=== PATIENT | female | born 1990 | race Caucasian/White ===

== ENCOUNTER 2017-11-11 12:51 | Emergency (ER) | payer MEDICAID ==
[~2017-11-11] VITALS: Ht 162.6 cm; Wt 68.4 kg
[2017-11-11 12:57] VITALS: BP 117/62; PULSE 103; RESP 16; TEMP 98.3; O2SAT 98
--- NOTE | 2017-11-11 13:24 | PD ---
HPI Chief Complaint: Related Problem Time Seen by Provider: 13:17 Travel History International Travel<30 days: No Contact w/Intl Traveler<30days: No Traveled to known affect area: No History of Present Illness HPI This 27-year-old female is complaining of lower abdominal pain. The pain started around 11:00 last night. It was quite bad at 2 AM she still having some discomfort now but is not as bad as it was earlier. She the pain was in the midline. She is currently . She has 2 previous pregnancies with one live and one miscarriage 2 months of gestation. [facility] Past Medical History Diminished Hearing: No ?: LMP: 07/09/17?? Social History Alcohol Use: No Tobacco Use: No Substance Use: No Allergies-Medications (Allergen,Severity, Reaction): Coded Allergies: No Known Allergies (Unverified Adverse Reaction, Unknown, 11/11/17) Reported Meds & Prescriptions Reported Meds & Active Scripts Active No Active Prescriptions or Reported Medications Review of Systems General / Constitutional: No: Fever, Chills Eyes: No: Diploplia HENT: No: Headaches Cardiovascular: No: Chest Pain or Discomfort Respiratory: No: Shortness of Breath Gastrointestinal: No: Nausea, Vomiting Genitourinary: Positive: Pelvic Pain Musculoskeletal: No: Myalgias, Arthralgias Skin: No Rash, No Itching Endocrine: No: Cold Intolerance Hematologic/Lymphatic: No: Easy Bruising Physical Exam Narrative GENERAL: Well-developed female SKIN: Focused skin assessment warm/dry. HEAD: Atraumatic. Normocephalic. EYES: Pupils equal and round. No scleral icterus. No injection or drainage. ENT: No nasal bleeding or discharge. Mucous membranes pink and moist. NECK: Trachea midline. No JVD. CARDIOVASCULAR: Regular rate and rhythm. No murmur appreciated. RESPIRATORY: No accessory muscle use. Clear to auscultation. Breath sounds equal bilaterally. GASTROINTESTINAL: Abdomen soft, non-tender, nondistended. Hepatic and splenic margins not palpable. GLASS TECHNOLOGIST: Cervical os is closed. There is some slight white discharge. There is mild discomfort with movement of the cervix. Uterus is about 16 weeks size MUSCULOSKELETAL: No obvious deformities. No clubbing. No cyanosis. No edema. NEUROLOGICAL: Awake and alert. No obvious cranial nerve deficits. Motor grossly within normal limits. Normal speech. PSYCHIATRIC: Appropriate mood and affect; insight and judgment normal. Data Data Last Documented VS Vital Signs Date Time Temp Pulse Resp B/P (MAP) Pulse Ox O2 Delivery O2 Flow Rate FiO2 11/11/17 12:57 98.3 103 16 117/62 (80) 98 Orders Orders Urinalysis - C+S If Indicated (11/11/17 13:26) Gc And Chlamydia Pcr (11/11/17 13:43) Wet Prep Profile (11/11/17 13:43) Urine Culture (11/11/17 13:30) Labs Laboratory Tests Test 11/11/17 13:30 11/11/17 13:45 Urine Collection Type CLEAN CATCH Urine Color YELLOW Urine Turbidity CLEAR Urine pH 7.5 Urine Specific [place] 1.018 Urine Protein NEG mg/dL Urine Glucose (UA) NEG mg/dL Urine Ketones TRACE mg/dL Urine Occult Blood TRACE Urine Nitrite NEG Urine Bilirubin NEG Urine Leukocyte Esterase NEG Urine WBC 0-2 /hpf Urine Squamous Epithelial Cells 0-5 /hpf Urine Bacteria MANY /hpf Microscopic Urinalysis Comment CULTURE INDICATED Clue Cells (Wet Prep) PRESENT Vaginal Trichomonas (Wet Prep) NONE SEEN Vaginal Yeast (Wet Prep) NONE SEEN MDM Medical Decision Making Medical Screen Exam Complete: Yes Emergency Medical Condition: Yes Medical Record Reviewed: Yes Differential Diagnosis Differential includes cervicitis, threatened ab, uti Narrative Course Wet prep is positive for clue cells indicating bacterial vaginosis. She'll be treated with clindamycin 300 twice a day Diagnosis Primary Impression: Bacterial vaginosis Scripts Clindamycin (Clindamycin) 300 Mg Cap 300 MG PO BID for Infection for 7 Days, #14 CAP 0 Refills Prov: Nathanael De La O MD 11/11/17 Disposition: 01 DISCHARGE HOME Condition: Stable Nathanael De La O MD Nov 11, 2017 13:24
[2017-11-11 13:38] LABS: BLOOD, URINE TRACE (NEG); GLUCOSE,URINE NEG (NEG); KETONE, URINE TRACE mg/dL (NEG); NITRITE,URINE NEG (NEG); PH, URINE 7.5 (5.0-8.5)
[2017-11-11 13:41] LABS: METHOD OF COLLECTION CLEAN CATCH; URINE COLOR YELLOW (YELLW/STRAW)
[2017-11-11 13:43] LABS: BACTERIA, URINE MANY /hpf; SQUAMOUS EPITHELIAL CELL URINE 0-5 /hpf (0-5)
[2017-11-11 13:44] LABS: COMMENT (UR) CULTURE INDICATED; CULTURE IF INDICATED CULTURE INDICATED; WBC, URINE 0-2 /hpf (0-5)
[2017-11-11] MEDS ORDERED: CLIN300C5 PO (14:24)
[2017-11-11 14:29] VITALS: BP 116/67
[2017-11-11 20:56] LABS: CHLAMYDIA PCR NOT DETECTED (NOT DETECT); NEISSERIA PCR NOT DETECTED (NOT DETECT)
== END 2017-11-11 15:27 | disposition home or self-care (01) ==
LOC: PHED 12:51
DX: O23.599 Infection of other part of genital tract in pregnancy, unspecified trimester (principal); B96.89 Other specified bacterial agents as the cause of diseases classified elsewhere; N76.0 Acute vaginitis; Z3A.00 Weeks of gestation of pregnancy not specified
CPT/HCPCS: 81001; 87077; 87086; 87186; 87210; 87491; 87591; 99284

== ENCOUNTER 2017-11-24 13:53 | Emergency (ER) | payer MEDICAID ==
[~2017-11-24 13:53] MED LIST: CLIN300C5 PO
[2017-11-24 14:30] VITALS: RESP 16; TEMP 98.1
[2017-11-24 14:31] VITALS: BP 121/72; PULSE 98
--- NOTE | 2017-11-24 15:25 | PD ---
HPI Chief Complaint abdominal pain Date Seen: Nov 24, 2017 Time Seen: 15:13 Travel History International Travel<30 Days: No Contact w/Intl Traveler<30Days: No History of Present Illness HPI Patient is a 27 year old at approximately 16 weeks gestation who presents for lower abdominal pain. LUISITO unknown per patient but she had US last week at [facility]. She has seen Jennifer Padilla once this . Abdominal pain onset was yesterday evening, sharp in intensity, self-resolved. Recurred this morning and she decided to get checked out. Severity 8/10. No radiation to the back. No nausea or vomiting, no constipation or diarrhea. No fevers. She denies leakage of fluid, vaginal bleeding, and contractions. She feels baby moving regularly. She denies CHAVIS/sick contacts/SOB/calf pain/dizziness/seeing spots. History Past Medical History Medical History: Denies Significant Hx Past Surgical History Surgical History: No Previous Surgery Family History Family History: Negative Social History Alcohol Use: No Tobacco Use: No Substance Abuse: No Allergies-Medications (Allergen,Severity, Reaction): Coded Allergies: No Known Allergies (Unverified Allergy, Unknown, 11/24/17) Home Meds Active Scripts Clindamycin (Clindamycin) 300 Mg Cap, 300 MG PO BID for Infection for 7 Days, # 14 CAP 0 Refills Prov:Nathanael De La O MD 11/11/17 Review of Systems Except as stated in HPI: all other systems reviewed are Neg Physical Exam Vital Signs Date Time Temp Pulse Resp B/P (MAP) Pulse Ox O2 Delivery O2 Flow Rate FiO2 11/24/17 14:31 98 121/72 (88) 11/24/17 14:30 98.1 16 Narrative GENERAL: Well-nourished, well-developed female in no apparent distress. SKIN: Warm and dry. No rashes or ecchymoses. HEAD: Normocephalic and atraumatic. EYES: No scleral icterus. No injection or drainage. ENT: No nasal drainage noted. Mucous membranes pink. Airway patent. NECK: Supple, trachea midline. No JVD. CARDIOVASCULAR: Regular rate and rhythm without murmurs, gallops, or rubs. RESPIRATORY: Breath sounds equal bilaterally. No accessory muscle use. ABDOMEN/GI: Abdomen soft, non-tender, bowel sounds present, no rebound, no guarding. Uterus palpated under umbilicus, not firm, not tender. Tender to palpation over round ligaments. GENITOURINARY: External Genitalia: intact and normal in appearance Cervix: closed, thick, high Membranes: intact Uterine Contractions: not evident FHR: 150s EXTREMITIES: No cyanosis or edema. BACK: Nontender without obvious deformity. No CVA tenderness. NEUROLOGICAL: Awake and alert. Motor and sensory grossly within normal limits. Five out of 5 muscle strength in all muscle groups. Normal speech. Data Data Vital Signs Reviewed: Yes (VS wnl) Orders Orders Ob Poc Ultrasound (11/24/17 ) Vital Signs (Adult) .ON ADMISSION (11/24/17 14:26) ^ Labor Status (11/24/17 14:26) Heart (11/24/17 14:26) MDM Medical Record Reviewed: Yes Narrative Course / MDM 27 year old at approximately 16 weeks gestation who presents for lower abdominal pain. LUISITO unknown per patient but she had US last week at [facility]. She has seen Jennifer Padilla once this . Abdominal Pain: Ddx includes round ligament pain, muscle strain, UTI, Urine dipstick negative Give 50mcg fentanyl IM x 1 for pain, counseled on no driving or heavy lifting after Counseled on Tylenol PRN with max daily dose 3 grams Intrauterine : FHR 150s POC ultrasound performed by Dr. Meléndez showing 16 and 2/7 week gestation, LUISITO 05/09, EFW based on AC/BPD/FL/HC of 22 grams. Anterior placenta, normal fluid. Heart beat present on US. Routine care recommended, given information for [facility] to establish care as requested by patient. SDW Dr. Meléndez Plan Discharge home once pain controlled F/U with OB provider within one week Diagnosis Diagnosis: Primary Impression: First trimester Additional Impression: Abdominal pain during in first trimester Disposition: 01 DISCHARGE HOME Condition: Stable Patient Instructions: Abdominal Pain in (ED), General Instructions, Narcotic given in the ED Departure Forms: Tests/Procedures, Work Release Enter return to work date: Nov 27, 2017 Special Instructions: No heavy lifting Bed rest 24-48 hr Noni Zaavleta MD R2 Nov 24, 2017 15:25
== END 2017-11-24 16:06 | disposition home or self-care (01) ==
LOC: HOBED 13:53
DX: O26.892 Other specified pregnancy related conditions, second trimester (principal); R10.2 Pelvic and perineal pain; Z3A.16 16 weeks gestation of pregnancy
CPT/HCPCS: 96372; 99285; J3010

== ENCOUNTER 2017-12-28 04:13 | Emergency (ER) | payer MEDICAID ==
--- NOTE | 2017-12-28 05:39 | PD ---
HPI Chief Complaint Vaginal bleeding and cramping Date Seen: Dec 28, 2017 Time Seen: 05:30 Travel History International Travel<30 Days: No Contact w/Intl Traveler<30Days: No Known Affected Area: No History of Present Illness HPI 27-year-old 21 weeks induced Jennifer Padilla and presents complaining of having some vaginal bleeding and 3:00 this morning also noted some lower abdominal pain just above the symphysis at the same time she noticed the bleeding. States bleeding was less than a period, she denies leakage of fluid Weeks Gestation: 21 Para: 1 : 3 Miscarriage: 1 History Obstetric History Obstetric History One vaginal delivery 1 early loss Social History Alcohol Use: No Tobacco Use: No Substance Abuse: No Allergies-Medications (Allergen,Severity, Reaction): Coded Allergies: No Known Allergies (Unverified Allergy, Unknown, 11/24/17) Home Meds Active Scripts Clindamycin (Clindamycin) 300 Mg Cap, 300 MG PO BID for Infection for 7 Days, # 14 CAP 0 Refills Prov:Nathanael De La O MD 11/11/17 Review of Systems General / Constitutional: No: Fever, Weight Gain, Chills, Other Eyes: No: Diploplia, Blurred Vision, Visual changes, Pain, Photophobia HENT: No: Headaches, Vertigo, Lightheadedness Cardiovascular: No: Irregular Rhythm, Chest Pain or Discomfort, Palpitations, Tachycardia, Syncope, Varicosities, Edema, Cyanosis Respiratory: No: Cough, Short of Breath, Other Gastrointestinal: Abdominal Pain, No: Nausea, Vomiting, Diarrhea Genitourinary: Vaginal Bleeding, No: Decreased Urinary Output, Oliguria Musculoskeletal: No: Limited ROM, Weakness, Cramping, Edema, Pain Skin: No Rash, No Itching, No Dryness, No Lumps, No Change in Pigmentation, No Change in Nails, No Alopecia, No Lesions Neurologic: No: Weakness, Dizziness, Syncope, Focal Abnormalities, Coordination Problem, Headache, Slurred Speech, Seizures Psychiatric: No: Depression, Suicidal Ideations, Homicidal Ideation Endocrine: No: Heat Intolerance, Cold Intolerance, Polydipsia, Polyuria, Other Physical Exam Narrative GENERAL: Well-nourished, well-developed patient. SKIN: Warm and dry. HEAD: Normocephalic and atraumatic. EYES: No scleral icterus. No injection or drainage. ENT: No nasal drainage noted. Mucous membranes pink. Airway patent. NECK: Supple, trachea midline. No JVD. CARDIOVASCULAR: Regular rate and rhythm without murmurs, gallops, or rubs. RESPIRATORY: Breath sounds equal bilaterally. No accessory muscle use. BREASTS: Bilateral exam showed no masses , no retractions, no nipple discharge. ABDOMEN/GI: Abdomen soft, non-tender, bowel sounds present, no rebound, no guarding Gravid to [-21] weeks size Fundal Height: [at umbilicus-] GENITOURINARY: External Genitalia: intact and normal in appearance Speculum exam done--no blood seen in the vagina cervix appears normal Cervix: [Posterior-] Dilatation: [Closed-] Effacement: [-Thick] Station: [-3] Presentation: [vtx-] Membranes: [intact ] Uterine Contractions: [none-] FHT's: 130s EXTREMITIES: No cyanosis or edema. BACK: Nontender without obvious deformity. No CVA tenderness. NEUROLOGICAL: Awake and alert. Motor and sensory grossly within normal limits. Five out of 5 muscle strength in all muscle groups. Normal speech. Data Data Orders Orders Ob Poc Ultrasound (12/28/17 ) Labs Bedside ultrasound done tonight by me that shows a 21 week intrauterine estimated weight 375 gm,. with anterior placenta no sign of previa, normal amniotic fluid, active fetus normal cardiac motion, EDC 05/07/18 MDM Interpretation(s) 27-year-old at 21 weeks who goes to [facility] midwifery and presents with vaginal spotting and some cramping in the night, there was no extra activity or intercourse noted, on exam there is no blood seen in the vagina is normal minimal white discharge cervix is closed and normal. Ultrasound done shows no previa placenta is anterior fetus is 21 weeks size with normal activity cardiac motion and amniotic fluid Plan Patient is encouraged to have increased bedrest if she notes any spotting and a follow-up with her OB provider Diagnosis Diagnosis: Primary Impression: Vaginal bleeding before 22 weeks gestation Disposition: 01 DISCHARGE HOME Condition: Stable Departure Forms: Work Release Enter return to work date: Dec 29, 2017 Special Instructions: bedrest if bleeding noted Gino Meléndez II, MD Dec 28, 2017 05:39
== END 2017-12-28 05:55 | disposition home or self-care (01) ==
LOC: HOBED 04:13
DX: O46.92 Antepartum hemorrhage, unspecified, second trimester (principal)
CPT/HCPCS: 76815

== ENCOUNTER 2018-02-13 14:20 | Emergency (ER) | payer MEDICAID ==
--- NOTE | 2018-02-13 15:05 | PD ---
HPI Chief Complaint Left lower quadrant pain Date Seen: Feb 13, 2018 Time Seen: 15:01 Travel History International Travel<30 Days: No Contact w/Intl Traveler<30Days: No Known Affected Area: No History of Present Illness HPI 27-year-old who is at 28 weeks 1 day comes in complaining of left lower quadrant pain for 2-3 days. Patient stands at her work and noticed it initially while she was working. It worsens with activity and standing and decreases with lying down or sitting. Patient denies contractions and states that she has had good movement. Patient had a small amount of spotting 3 days ago but that resolved and has not returned. Patient sees Jennifer Padilla for her care Weeks Gestation: 28 Para: 1 : 3 Miscarriage: 1 History Past Medical History Medical History: Denies Significant Hx Obstetric History Obstetric History Spontaneous vaginal delivery, baby was almost 9 pounds Past Surgical History Surgical History: No Previous Surgery Family History Family History: Negative Social History Alcohol Use: No Tobacco Use: No Substance Abuse: No Allergies-Medications (Allergen,Severity, Reaction): Coded Allergies: No Known Allergies (Unverified Allergy, Unknown, 02/13/18) Home Meds Active Scripts Clindamycin (Clindamycin) 300 Mg Cap, 300 MG PO BID for Infection for 7 Days, # 14 CAP 0 Refills Prov:Nathanael De La O MD 11/11/17 Review of Systems Except as stated in HPI: all other systems reviewed are Neg Physical Exam Narrative GENERAL: Well-nourished, well-developed patient. SKIN: Warm and dry. HEAD: Normocephalic and atraumatic. EYES: No scleral icterus. No injection or drainage. ENT: No nasal drainage noted. Mucous membranes pink. Airway patent. NECK: Supple, trachea midline. No JVD. CARDIOVASCULAR: Regular rate and rhythm without murmurs, gallops, or rubs. RESPIRATORY: Breath sounds equal bilaterally. No accessory muscle use. ABDOMEN/GI: Abdomen soft, mild tenderness in left lower quadrant, bowel sounds present, no rebound, no guarding Gravid to [-28] weeks size Fundal Height: [28-] GENITOURINARY: External Genitalia: intact and normal in appearance BUS glands: [-] Cervix: [-] Dilatation: [-] Effacement: [-] Station: [-] Presentation: [-] Membranes: [intact or ruptured] Uterine Contractions: [-] FHT's: Category: [-] 1 Baseline: [-] 140 Reactive: [-] Moderate Variability: [-] Moderate Decels: [-] Absent EXTREMITIES: No cyanosis or edema. BACK: Nontender without obvious deformity. No CVA tenderness. NEUROLOGICAL: Awake and alert. Motor and sensory grossly within normal limits. Five out of 5 muscle strength in all muscle groups. Normal speech. Data Data Vital Signs Reviewed: Yes MDM Medical Record Reviewed: Yes Plan 27-year-old at 28 weeks gestation with left round ligament pain, no signs of contractions or labor Recommended a support belt Follow up with OB provider Diagnosis Diagnosis: Primary Impression: 28 weeks gestation of Additional Impression: Pain of round ligament affecting , antepartum Disposition: 01 DISCHARGE HOME Sheyla Leger MD Feb 13, 2018 15:05
== END 2018-02-13 15:20 | disposition home or self-care (01) ==
LOC: HOBED 14:20
DX: O26.892 Other specified pregnancy related conditions, second trimester (principal); R10.2 Pelvic and perineal pain; Z3A.28 28 weeks gestation of pregnancy
CPT/HCPCS: 99283

== ENCOUNTER 2018-04-05 17:16 | Emergency (ER) | payer MEDICAID | END 2018-04-05 19:18 | disposition home or self-care (01) | LOC: HOBED 17:16 | DX: O26.893 Other specified pregnancy related conditions, third trimester (principal); R10.2 Pelvic and perineal pain; Z3A.35 35 weeks gestation of pregnancy | CPT/HCPCS: 59025; 84112; 99284-25 ==

== ENCOUNTER 2018-05-01 11:49 | Emergency (ER) | payer MEDICAID ==
--- NOTE | 2018-05-01 13:06 | PD ---
HPI Chief Complaint pelvic pressure Date Seen: May 01, 2018 Time Seen: 12:59 Travel History International Travel<30 Days: No Contact w/Intl Traveler<30Days: No Known Affected Area: No History of Present Illness HPI pt. is a 27 y/o @ 39 1/7 weeks present w/ c/o pelvic pressure. pt. states began yesterday and has worsened. irreg ctxs. +FM, no vb. states some clear leak of fluid. Weeks Gestation: 39 Para: 1 : 3 Miscarriage: 1 History Past Medical History Medical History: Denies Significant Hx Obstetric History Obstetric History , x 1, sab x 1 Past Surgical History Surgical History: No Previous Surgery Family History Family History: Negative Social History Alcohol Use: No Tobacco Use: No Substance Abuse: No Allergies-Medications (Allergen,Severity, Reaction): Coded Allergies: No Known Allergies (Unverified Allergy, Unknown, 02/13/18) Review of Systems Except as stated in HPI: all other systems reviewed are Neg Physical Exam Narrative GENERAL: Well-nourished, well-developed patient. SKIN: Warm and dry. HEAD: Normocephalic and atraumatic. EYES: No scleral icterus. No injection or drainage. ENT: No nasal drainage noted. Mucous membranes pink. Airway patent. NECK: Supple, trachea midline. No JVD. CARDIOVASCULAR: Regular rate and rhythm without murmurs, gallops, or rubs. RESPIRATORY: Breath sounds equal bilaterally. No accessory muscle use. ABDOMEN/GI: Abdomen soft, non-tender, bowel sounds present, no rebound, no guarding Gravid GENITOURINARY: External Genitalia: intact and normal in appearance Dilatation: 3 Station: 50/high Presentation: [-] Membranes: intact Uterine Contractions: irreg FHT's: Category:1 Reactive: + Variability: mod EXTREMITIES: No cyanosis or edema. BACK: Nontender without obvious deformity. No CVA tenderness. NEUROLOGICAL: Awake and alert. Motor and sensory grossly within normal limits. Five out of 5 muscle strength in all muscle groups. Normal speech. Data Data Vital Signs Reviewed: Yes Orders Orders Urinalysis - C+S If Indicated (05/01/18 12:54) Physically Impaired Teacher Clear For Discharge (05/01/18 ) Group B Strep: Negative MDM Medical Record Reviewed: Yes Plan pt. not in labor. pt. to be d/c to home. pt. w/o srom. pt. given precautions for return. f/u as sched. all ? answered. Diagnosis Diagnosis: Primary Impression: Pelvic pressure in Additional Impressions: Uterine contractions 39 weeks gestation of Disposition: 01 DISCHARGE HOME Tr Lawrence Jr., MD May 01, 2018 13:05
[2018-05-01 13:39] LABS: BACTERIA, URINE MANY /hpf; BILIRUBIN, URINE NEG (NEG); BLOOD, URINE NEG (NEG); GLUCOSE,URINE NEG (NEG); KETONE, URINE NEG (NEG); MUCUS URINE FEW /lpf (OCC); NITRITE,URINE NEG (NEG); SQUAMOUS EPITHELIAL CELL URINE 6 /hpf (0-5); URINE COLOR YELLOW (YELLW/STRAW); URINE LEUKOCYTE ESTERASE LARGE (NEG)
== END 2018-05-01 13:16 | disposition home or self-care (01) ==
LOC: HOBED 11:49
DX: O26.893 Other specified pregnancy related conditions, third trimester (principal); Z3A.39 39 weeks gestation of pregnancy
CPT/HCPCS: 59025; 81001; 84112; 87086

== ENCOUNTER 2018-05-02 02:16 | Emergency (ER) | payer MEDICAID ==
--- NOTE | 2018-05-02 04:26 | PD ---
HPI Chief Complaint ctxs Date Seen: May 02, 2018 Time Seen: 04:23 Travel History International Travel<30 Days: No Contact w/Intl Traveler<30Days: No Known Affected Area: No History of Present Illness HPI pt. is a 27 y/o @ 39 2/7 weeks present w/ c/o ctxs. pt. here earlier and had ctxs. pt. states intensity and freq increased. +FM, no lof/vb. pt. cervix on present /high. no seat cover installer time of monitoring. Weeks Gestation: 39 Para: 1 : 3 Miscarriage: 1 History Past Medical History Medical History: Denies Significant Hx Obstetric History Obstetric History , x 1, sab x 1 Past Surgical History Surgical History: No Previous Surgery Family History Family History: Negative Social History Alcohol Use: No Tobacco Use: No Substance Abuse: No Allergies-Medications (Allergen,Severity, Reaction): Coded Allergies: No Known Allergies (Unverified Allergy, Unknown, 02/13/18) Review of Systems Except as stated in HPI: all other systems reviewed are Neg Physical Exam Narrative GENERAL: Well-nourished, well-developed patient. SKIN: Warm and dry. HEAD: Normocephalic and atraumatic. EYES: No scleral icterus. No injection or drainage. ENT: No nasal drainage noted. Mucous membranes pink. Airway patent. NECK: Supple, trachea midline. No JVD. CARDIOVASCULAR: Regular rate and rhythm without murmurs, gallops, or rubs. RESPIRATORY: Breath sounds equal bilaterally. No accessory muscle use. BREASTS: Bilateral exam showed no masses , no retractions, no nipple discharge. ABDOMEN/GI: Abdomen soft, non-tender, bowel sounds present, no rebound, no guarding Gravid GENITOURINARY: External Genitalia: intact and normal in appearance Dilatation: 3 Effacement: 50 Station: high Presentation: cephalic Membranes: intact Uterine Contractions: q3-5 min FHT's: Category: 1 Reactive: + Variability: mod EXTREMITIES: No cyanosis or edema. BACK: Nontender without obvious deformity. No CVA tenderness. NEUROLOGICAL: Awake and alert. Motor and sensory grossly within normal limits. Five out of 5 muscle strength in all muscle groups. Normal speech. Data Data Vital Signs Reviewed: Yes Orders Orders Customs Compliance Manager Clear For Discharge (05/02/18 ) [facility] Medical Record Reviewed: Yes Plan pt. not in labor. to be d/c to home. given precautions for return. all ? answered. f/u as sched. Diagnosis Diagnosis: Primary Impression: False labor after 37 completed weeks of gestation Additional Impression: 39 weeks gestation of Disposition: 01 DISCHARGE HOME Tr Lawrence Jr., MD May 02, 2018 04:26
== END 2018-05-02 04:45 | disposition home or self-care (01) ==
LOC: HOBED 02:16
DX: O47.1 False labor at or after 37 completed weeks of gestation (principal); Z3A.39 39 weeks gestation of pregnancy
CPT/HCPCS: 59025

== ENCOUNTER 2018-05-10 16:40 | Inpatient (IN) | payer MEDICAID ==
[~2018-05-10] VITALS: Ht 162.6 cm; Wt 88.0 kg
--- NOTE | 2018-05-10 18:06 | PD ---
History of Present Illness History of Present Illness NST/BPP report Indications: IUP at 40.3, decreased movement, postterm heart tones are in the 130s with moderate long-term variability, good accelerations, no decelerations noted with a reactive NST and category 1 heart rate tracing Bedside biophysical profile was performed by the physician. SHEYLA was normal at 11.96 with pockets of 2.39, 1.1, 3.72, 4.75. There is greater than 30 seconds of breathing movements noted as well as numerous flexion/extension and gross body movement noted Final diagnosis: IUP at 40.3, reassuring testing, postterm Follow Up: continue monitoring Candice Rojas MD May 10, 2018 18:06
--- NOTE | 2018-05-10 18:06 | PD ---
HPI Chief Complaint pelvic pain Travel History International Travel<30 Days: No Contact w/Intl Traveler<30Days: No Known Affected Area: No History of Present Illness HPI 28-year-old , IUP at 40.3 new care complicated by postterm Patient presents complaining of pelvic and back pain that has been worsening over the past several days. She reports that she has had leaking of fluid over the past several days. She reports that she has significant pain while walking. There are no alleviating factors are attempted treatments. Her pain is improved when she is at rest. She reports she is felt decreased movement. She denies any large gush of fluid and denies any vaginal bleeding. She reports irregular contractions. She is concerned because she had a friend who went postterm with a subsequent demise. Weeks Gestation: 40 Para: 1 : 3 Miscarriage: 1 : 0 History Past Medical History Medical History: Denies Significant Hx Obstetric History Obstetric History 1 a benign compound plus there was a vacuum-assisted vaginal delivery. The patient reports she had a laceration but it "was not very bad." She denies any complications with the delivery reports the baby came out without any apparent delay after delivery of the head. She denies any abnormal Paps or STDs. Past Surgical History Surgical History: No Previous Surgery Family History Narrative Family History Denies Social History Alcohol Use: No Tobacco Use: No Substance Abuse: No Allergies-Medications (Allergen,Severity, Reaction): Coded Allergies: No Known Allergies (Verified Allergy, Unknown, 05/10/18) Home Meds Reported Medications Pnv No.95/Ferrous Fum/Folic AC ( Vitamins Tablet) 28 Mg Iron-800 Mcg Tablet 05/10/18 Review of Systems Except as stated in HPI: all other systems reviewed are Neg Physical Exam Narrative GENERAL: Well-nourished, well-developed patient. SKIN: Warm and dry. HEAD: Normocephalic and atraumatic. EYES: No scleral icterus. No injection or drainage. ENT: No nasal drainage noted. Mucous membranes pink. Airway patent. NECK: Supple, trachea midline. No JVD. CARDIOVASCULAR: Regular rate and rhythm without murmurs, gallops, or rubs. RESPIRATORY: Breath sounds equal bilaterally. No accessory muscle use. BREASTS: Deferred ABDOMEN/GI: Abdomen soft, non-tender, bowel sounds present, no rebound, no guarding Gravid GENITOURINARY: External Genitalia: intact and normal in appearance. Normal BUS. No cervical or vaginal masses noted. Physiologic discharge. Amnio sure was performed and was negative. There is grossly normal rugae noted. SVE 3/50/-2-- 3. FHT's: See separately dictated BPP report EXTREMITIES: No cyanosis or edema. BACK: Nontender without obvious deformity. NEUROLOGICAL/musculoskeletal: Awake and alert. Motor and sensory grossly within normal limits. Grossly normal muscle strength in all muscle groups. Normal speech. Grossly normal range of motion, gait Psychiatric: Grossly normal memory and affect MDM Plan Assessment/plan: 1. IUP at 40.3 2. Pelvic and back pain: No evidence of active labor, pelvic and back pain is likely secondary to advanced 3. well-being: Overall well-being was noted with biophysical profile of 8 out of 8 and reactive NST. However the patient reports decreased movement at 40.3 and a run of tachycardia was noted. She will therefore be in admitted for induction of labor. The risks, benefits, and alternatives of induction of labor were admitted. Her pelvis is tested to 9+ pounds. She believes this baby is smaller than her previous, perhaps 8 pounds. The risks of and risks/indications of delivery were discussed. All the patient's questions were answered. 4. GBS negative Candice Rojas MD May 10, 2018 18:06
[2018-05-10] MEDS ORDERED: PRENTAB7 (19:38)
[2018-05-10 20:15] LABS: AUTOMATED NEUTROPHIL # 8.2 TH/MM3 (1.8-7.7); BASOPHIL % 0.1 % (0.0-2.0); EOSINOPHIL % 0.5 % (0.0-4.0); HEMATOCRIT 33.7 % (35.0-46.0); LYMPH % 12.1 % (9.0-44.0); LYMPHOCYTE # 1.3 TH/MM3 (1.0-4.8); MEAN CELL VOLUME 91.4 FL (80.0-100.0); MEAN CORPUSCULAR HEMOGLOBIN 29.8 PG (27.0-34.0); MEAN CORPUSCULAR HGB CONC 32.6 % (32.0-36.0); MEAN PLATELET VOLUME 10.3 FL (7.0-11.0); MONO % 9.6 % (0.0-8.0); NEUT % 77.7 % (16.0-70.0); PLATELET COUNT 161 TH/MM3 (150-450); RED BLOOD COUNT 3.69 MIL/MM3 (4.00-5.30); RED CELL DISTRIBUTION WIDTH 14.7 % (11.6-17.2); WHITE BLOOD COUNT 10.6 TH/MM3 (4.0-11.0)
[2018-05-10 20:18] LABS: BILIRUBIN, URINE NEG (NEG); BLOOD, URINE NEG (NEG); GLUCOSE,URINE NEG (NEG); KETONE, URINE NEG (NEG); MUCUS URINE FEW /lpf (OCC); NITRITE,URINE NEG (NEG); PH, URINE 6.5 (5.0-8.5); SQUAMOUS EPITHELIAL CELL URINE 1 /hpf (0-5); URINE COLOR YELLOW (YELLW/STRAW); URINE LEUKOCYTE ESTERASE NEG (NEG)
[2018-05-10 22:14] VITALS: BP 124/83; PULSE 96
[2018-05-10] MEDS ORDERED: LACTATED RINGER'S 1000 ML INJ 1,000 ML IV PRN (22:17)
[2018-05-10] MEDS ORDERED: LACTATED RINGER'S 1000 ML INJ 1,000 ML IV SCH (22:17)
[2018-05-10 22:23] VITALS: RESP 17
[2018-05-10] MEDS ORDERED: SODIUM CHLORID 0.9% 500 ML INJ 500 ML IV PRN (22:30)
[2018-05-10] MEDS ORDERED: LIDOCAINE HCL 1% 50 ML VIAL I-DERMAL PRN (22:30)
[2018-05-10] MEDS ORDERED: MINERAL OIL 10 ML VIAL TOPICAL PRN (22:30)
[2018-05-10] MEDS ORDERED: LIDOCAINE HCL 1% 50 ML VIAL INFIL PRN (22:30)
[2018-05-10] MEDS ORDERED: OXYTOCIN 30 UNITS-500ML PREMIX 500 ML IV ONE (22:30)
[2018-05-10] MEDS ORDERED: CITRIC ACID-SODIUM CITRATE LIQ 30 ML UDC PO SCH (22:30)
[2018-05-10] MEDS ORDERED: SODIUM CHLOR 0.9% 1000 ML INJ 1,000 ML IV PRN (22:37)
--- NOTE | 2018-05-10 22:46 | HHI.HP ---
History & Physical H&P HPI Chief Complaint pelvic pain, low back pain, LOF Travel History International Travel<30 Days: No Contact w/Intl Traveler<30Days: No Known Affected Area: No History of Present Illness HPI 28-year-old , IUP at 40.3 new care complicated by postterm Ms Lancaster is a 28 YO at 40/3 weeks followed by Jennifer Padilla who presents complaining of pelvic and back pain that has been worsening over the past several days and dizziness this morning that has resolved. She reports that she has had leaking of fluid over the past several weeks. She reports that she has significant pain while walking. There are no alleviating factors are attempted treatments. Her pain is improved when she is at rest. She reports she is felt decreased movement, but there is good movement now. She denies any large gush of fluid and denies any vaginal bleeding. She reports irregular contractions. She is concerned because she had a friend who went postterm with a subsequent demise. She has NKA and is taking only the PNV. Pt has has occasional HAs over the past several days, but no visual changes, no abdominal pain, N/V/D or constipation. She does complain of LE swelling and edema, especially over the dorsum of the left foot. Weeks Gestation: 40 Para: 1 : 3 Miscarriage: 1 : 0 History (Limited) History Past Medical History Medical History: Denies Significant Hx Obstetric History Obstetric History 1 a benign compound plus there was a vacuum-assisted vaginal delivery. The patient reports she had a laceration but it "was not very bad." She denies any complications with the delivery reports the baby came out without any apparent delay after delivery of the head. She denies any abnormal Paps or STDs. Past Surgical History Surgical History: No Previous Surgery Family History Narrative Family History Father has Parkinson's disease and HTN Mother has HTN Social History Alcohol Use: No Tobacco Use: No Substance Abuse: No Allergies-Medications Allergies-Medications (Allergen,Severity, Reaction): Coded Allergies: No Known Allergies (Verified Allergy, Unknown, 05/10/18) Home Meds Reported Medications Pnv No.95/Ferrous Fum/Folic AC ( Vitamins Tablet) 28 Mg Iron-800 Mcg Tablet 05/10/18 ROS Review of Systems Except as stated in HPI: all other systems reviewed are Neg Physical Exam Physical Exam Narrative GENERAL: Well-nourished, well-developed patient in NAD. SKIN: Warm and dry. No rashes or lesions. HEAD: Normocephalic and atraumatic. EYES: No scleral icterus. No injection or drainage. ENT: No nasal drainage noted. Mucous membranes pink. Airway patent. NECK: Supple, trachea midline. No JVD. CARDIOVASCULAR: Regular rate and rhythm without murmurs, gallops, or rubs. RESPIRATORY: Breath sounds equal bilaterally. No accessory muscle use. ABDOMEN/GI: Abdomen soft, non-tender, bowel sounds present, no rebound, no guarding Gravid GENITOURINARY: External Genitalia: intact and normal in appearance. Normal BUS. No cervical or vaginal masses noted. Physiologic discharge. Amnio sure was performed and was negative. There is grossly normal rugae noted. SVE 3/50/-2-- 3. FHT's: Cat 1 Baseline 130s Reactive Moderate variability No decels EXTREMITIES: No cyanosis or edema. BACK: Nontender without obvious deformity. NEUROLOGICAL/musculoskeletal: Awake and alert. Motor and sensory grossly within normal limits. Grossly normal muscle strength in all muscle groups. Normal speech. Grossly normal range of motion, gait Psychiatric: Grossly normal memory and affect Data Data [facility] MDM Plan Assessment/plan: 28YO female at 40/3 weeks presents postdates with cervix 3/50/-2-3 and is admitted for IOL. FHTs with BL 130s, Cat 1, reactive, moderate. BPP 8/8 and reactive NST. 1. IUP at 40.3 -[place] and monitor -LR IVF -BPP/NST -Fentanyl PRN for pain control 2. Pelvic and back pain: No evidence of active labor, pelvic and back pain is likely secondary to advanced -Pain control as above 3. well-being: Overall well-being was noted with biophysical profile of 8 out of 8 and reactive NST. However the patient reports decreased movement at 40.3 and a run of tachycardia was noted. She will therefore be in admitted for induction of labor. The risks, benefits, and alternatives of induction of labor were admitted. Her pelvis is tested to 9+ pounds. She believes this baby is smaller than her previous, perhaps 8 pounds. The risks of and risks/indications of delivery were discussed. All the patient's questions were answered. 4. GBS negative -No abx PPx required Pt discussed with Champ Menjivar MD R1 May 10, 2018 22:46
[2018-05-10 22:57] VITALS: TEMP 98.2
[2018-05-11] VITALS (86 sets, daily range): BP systolic 93–156; BP diastolic 52–99; PULSE 73–157; RESP 17–20; TEMP 98–99; O2SAT 94–100
[2018-05-11] MEDS ORDERED: OXYTOCIN 30 UNITS/NS 500ML PREMIX IV PRN (01:00)
--- NOTE | 2018-05-11 08:22 | PD.LABORPN ---
Subjective Subjective Patient is doing okay. Feeling contractions. SROM at 7:15 am this morning. Objective Objective Pelvic Exam: Cervix: Posterior Dilatation: 4cm Effacement: 80% Station: -2 Presentation: Cephalic Membranes: ruptured Uterine Contractions: q2-3 mins FHT's: Category: I Baseline: 130 Reactive: yes Variability: moderate Decels: None Weeks Gestation: 40 Assessment/Plan Assessment and Plan 28YO female at 40/4 weeks, GBS negative, SROM -Doing well, now in active labor -SROM at 7:15, clear fluid -Continue routine care -Continue Pitocin, now at 7 milliunits/min * Increase per protocol as tolerated by mom and baby -Patient does not desire an epidural DW Deya Way MD R2 May 11, 2018 08:22
[2018-05-11] MEDS ORDERED: INFLUENZA VIRUS VACCINE (QUADRIVALENT) 0.5 ML SYR IM ONE (09:00)
[2018-05-11] MEDS ORDERED: fentaNYL 2MCG-BUPIV 0.125% INJ 150 ML EPIDURAL ONE (10:32)
[2018-05-11] MEDS ORDERED: ePHEDrine/NS 25 MG/5 ML SYRINGE IV PUSH PRN (12:45)
[2018-05-11] MEDS ORDERED: NO SYSTEM NARCOTICS PRN (12:45)
[2018-05-11] MEDS ORDERED: DO NOT ADMINISTER ANTICOAGULANTS PRN (12:45)
[2018-05-11] MEDS ORDERED: fentaNYL 2MCG-BUPIV 0.125% 150 ML EPIDURAL PRN (12:45)
--- NOTE | 2018-05-11 13:05 | PD.OB.DELI ---
Weeks gestation: 40 Pt started active labor?: Yes Active labor start date: May 11, 2018 Active labor start time: 09:00 Medical induction of labor?: Yes Artificial rupture of membrane: No Anesthesia: Epidural Episiotomy: None Vaginal Delivery: Normal Presentation: Occiput anterior Nuchal Cord: None Delayed cord clamping (45 sec): Yes Infant: Female Delivery date: May 11, 2018 Delivery time: 12:49 One Minute : 8 Five Minute : 9 Weight: 3790g Placenta: Spontaneous delivery, Intact, 3 vessel cord Laceration: No lacerations Estimated blood loss: 150 mL Additional Information Terminal meconium noted. Head, anterior shoulder delivered by maternal effort. Remainder of delivery uncomplicated with delayed cord clamping. Placenta delivered without complications. No lacerations appreciated. Harry Renee MD R1 May 11, 2018 13:05
[2018-05-11] MEDS ORDERED: OXYTOCIN 30 UNITS-500ML PREMIX 500 ML IV SCH (13:15)
[2018-05-11] MEDS ORDERED: SODIUM CHLORIDE 0.9% FLUSH 10 ML FLUSH IV FLUSH PRN (13:15)
[2018-05-11] MEDS ORDERED: ALUMINUM/MAGNESIUM/SIMETH 30 ML CUP PO PRN (13:15)
[2018-05-11] MEDS ORDERED: ZOLPIDEM TARTRATE 5 MG TAB PO PRN (13:15)
[2018-05-11] MEDS ORDERED: WITCH HAZEL 50%/GLYCERIN 12.5% 40 PAD JAR TOPICAL PRN (13:15)
[2018-05-11] MEDS ORDERED: DOCUSATE SODIUM 50 MG/SENNA 8.6 MG TAB PO PRN (13:15)
[2018-05-11] MEDS ORDERED: ONDANSETRON ODT 4 MG TAB PO PRN (13:15)
[2018-05-11] MEDS ORDERED: BENZOCAINE 20% TOPICAL SPRAY 60 ML CAN TOPICAL PRN (13:15)
[2018-05-11] MEDS ORDERED: MEASLES, MUMPS, RUBELLA VACCINE 0.5 ML VIAL SQ ONE (16:00)
[2018-05-11] MEDS ORDERED: DIPHTH/TETANUS/ACEL PERTUSSIS (BOOSTER) 0.5 ML VIAL/PFS IM ONE (16:00)
[2018-05-11] MEDS ORDERED: SODIUM CHLORIDE 0.9% FLUSH 10 ML FLUSH IV FLUSH SCH (21:00)
[2018-05-12] MEDS: IBUPROFEN 800 MG TAB PO PRN ×2 (03:21→14:49)
[2018-05-12] MEDS: ACETAMINOPHEN 325 MG TAB PO PRN ×2 (03:21→14:50)
--- NOTE | 2018-05-12 08:14 | HHI.OB ---
Subjective Remarks Patient is a 28-year-old delivered at 40 weeks and 4 days. Patient is day 1 after . Patient's pain is well-controlled. Patient reports eating and drinking without any nausea or vomiting. Patient reports minimal bleeding. Patient has passed gas but no bowel movements. Patient is walking without lower extremity pain or shortness of breath. Patient is uncertain about contraception and plans on breast-feeding. Objective Vitals/I&O Vital Signs Date Time Temp Pulse Resp B/P (MAP) Pulse Ox O2 Delivery O2 Flow Rate FiO2 05/11/18 20:40 99.0 98 20 125/84 (98) Objective Remarks GENERAL: Well-nourished, well-developed patient. CARDIOVASCULAR: Regular rate and rhythm without murmurs, gallops, or rubs. RESPIRATORY: Breath sounds equal bilaterally. No accessory muscle use. ABDOMEN/GI: Abdomen soft, non-tender. Fundus: Firm, non-tender at umbilicus. GENITOURINARY: Light to moderate bleeding. EXTREMITIES: No cyanosis or edema, non-tender, without signs of DVT. Medications and IVs Current Medications Medications (Trade) Dose Ordered Sig/Laura Route Start Time Stop Time Status Last Admin Oxytocin 500 ml @ 0 mls/hr TITRATE PRN IV 05/11/18 01:00 05/11/18 01:31 ([facility] [place] [facility] Information) No systemic narcotics to be given except... UNSCH PRN .XX 05/11/18 12:45 05/12/18 12:44 ([facility] [place] [facility] Information) DO NOT ADMINISTER ANY ANTICOAGUL... UNSCH PRN .XX 05/11/18 12:45 05/12/18 12:44 Fentanyl/ Bupivacaine/ Sodium Chlor 150 ml @ 0 mls/hr TITRATE PRN EPIDURAL 05/11/18 12:45 (ePHEDrine/NS 25 MG/5 ML SYR) 10 mg UNSCH PRN IV PUSH 05/11/18 12:45 05/12/18 12:44 (NS Flush) 2 ml BID IV FLUSH 05/11/18 21:00 (NS Flush) 2 ml UNSCH PRN IV FLUSH 05/11/18 13:15 (Tylenol) 650 mg Q4H PRN PO 05/11/18 13:15 05/12/18 03:21 (Motrin) 800 mg Q8H PRN PO 05/11/18 13:15 05/12/18 03:21 (Americaine 20% Top Spr) 1 spray Q4H PRN TOPICAL 05/11/18 13:15 (Tucks Pads) 1 applic QID PRN TOPICAL 05/11/18 13:15 (Henny-Colace) 2 tab Q12H PRN PO 05/11/18 13:15 (Ambien) 5 mg HS PRN PO 05/11/18 13:15 (Mag-Al Plus Susp Liq) 15 ml Q8H PRN PO 05/11/18 13:15 (Zofran Odt) 4 mg Q6H PRN PO 05/11/18 13:15 Assessment/Plan Assessment and Plan Patient is a 28-year-old delivered at 40 weeks and 4 days. Patient is day 1 after . Patient was counseled to do 6 weeks of pelvic rest. Patient was counseled to follow up in 6 weeks. Patient requested follow-up and is undecided about contraception. --AF VSS --Continue routine care --Motrin and Tylenol when necessary for pain --Encourage OOB --Pelvic rest for 6 weeks will need follow-up appointment at that time. --Contraception: Undecided --Anticipate discharge tomorrow Harry Renee MD R1 May 12, 2018 08:14
[2018-05-12 20:00] VITALS: BP 116/77; PULSE 76; RESP 18; TEMP 98.2
[2018-05-13] MEDS: ACETAMINOPHEN 325 MG TAB PO PRN ×2 (02:52→07:58)
[2018-05-13] MEDS: IBUPROFEN 800 MG TAB PO PRN (02:52)
[2018-05-13] MEDS ORDERED: IBUP1TAB7 PO (08:31)
[2018-05-13] MEDS ORDERED: SPRI28TA PO (08:31)
--- NOTE | 2018-05-13 08:34 | HHI.DCPOC ---
Discharge Care Plan Diagnosis: (1) Vaginal delivery Report Symptoms to Your Doctor -Temperature above 100.5 degrees -Redness, of incision or excessive or foul smelling drainage -Unusual pain or calf pain -Increased vaginal bleeding -Painful or difficulty urinating -Feelings of extreme sadness or anxiety after 2 weeks Goals to Promote Your Health * To prevent worsening of your condition and complications * To maintain your health at the optimal level Directions to Meet Your Goals Take your medications as prescribed Follow your dietary instruction Follow activity as directed Ensure plenty of rest for recovery Drink fluids for hydration Keep your appointments as scheduled Take your immunizations and boosters as scheduled If your symptoms worsen call your PCP, if no PCP go to Urgent Care Center or Emergency Room Smoking is Dangerous to Your Health. Avoid second hand smoke Call the 24-hour crisis hotline for domestic abuse at Harry Renee MD R1 May 13, 2018 08:34
--- NOTE | 2018-05-13 08:36 | HHI.OB ---
Subjective Remarks Patient is a 28-year-old delivered at 40 weeks and 4 days. Patient is day 2 after . Patient's pain is well-controlled. Patient reports eating and drinking without any nausea or vomiting. Patient reports minimal bleeding. Patient has passed gas and bowel movements. Patient is walking without lower extremity pain or shortness of breath. Patient reports desire for contraception with OCP and breast-feeding. Objective Vitals/I&O Vital Signs Date Time Temp Pulse Resp B/P (MAP) Pulse Ox O2 Delivery O2 Flow Rate FiO2 05/12/18 20:00 98.2 76 18 116/77 (90) Objective Remarks GENERAL: Well-nourished, well-developed patient. CARDIOVASCULAR: Regular rate and rhythm without murmurs, gallops, or rubs. RESPIRATORY: Breath sounds equal bilaterally. No accessory muscle use. ABDOMEN/GI: Abdomen soft, non-tender. Fundus: Firm, non-tender at umbilicus. GENITOURINARY: Light to moderate bleeding. EXTREMITIES: No cyanosis or edema, non-tender, without signs of DVT. Medications and IVs Current Medications Medications (Trade) Dose Ordered Sig/Laura Route Start Time Stop Time Status Last Admin Oxytocin 500 ml @ 0 mls/hr TITRATE PRN IV 05/11/18 01:00 05/11/18 01:31 Fentanyl/ Bupivacaine/ Sodium Chlor 150 ml @ 0 mls/hr TITRATE PRN EPIDURAL 05/11/18 12:45 (NS Flush) 2 ml BID IV FLUSH 05/11/18 21:00 (NS Flush) 2 ml UNSCH PRN IV FLUSH 05/11/18 13:15 (Tylenol) 650 mg Q4H PRN PO 05/11/18 13:15 05/13/18 07:58 (Motrin) 800 mg Q8H PRN PO 05/11/18 13:15 05/13/18 02:52 (Americaine 20% Top Spr) 1 spray Q4H PRN TOPICAL 05/11/18 13:15 (Tucks Pads) 1 applic QID PRN TOPICAL 05/11/18 13:15 (Henny-Colace) 2 tab Q12H PRN PO 05/11/18 13:15 (Ambien) 5 mg HS PRN PO 05/11/18 13:15 (Mag-Al Plus Susp Liq) 15 ml Q8H PRN PO 05/11/18 13:15 (Zofran Odt) 4 mg Q6H PRN PO 05/11/18 13:15 Assessment/Plan Assessment and Plan Patient is a 28-year-old delivered at 40 weeks and 4 days. Patient is day 2 after . Patient was counseled to do 6 weeks of pelvic rest. Patient was counseled to follow up in 6 weeks. Patient requested follow-up and contraception. --AF VSS --Continue routine care --Motrin and Tylenol when necessary for pain --Encourage OOB --Pelvic rest for 6 weeks will need follow-up appointment at that time. --Contraception: OCP, will prescribe at DC --Discharge today Harry Renee MD R1 May 13, 2018 08:36
== END 2018-05-13 14:08 | disposition home or self-care (01) | DRG 775 ==
LOC: HOBED 16:40 → H2EB 19:09 → H1EA 05-11 14:23
PROVIDERS: ADMIT Obstetrics & Gynecology; ATTEND Obstetrics & Gynecology
PROC: 3E033VJ Introduction of Other Hormone into Peripheral Vein, Percutaneous Approach (ICD-10-PCS; 2018-05-10)
PROC: 10E0XZZ Delivery of Products of Conception, External Approach (ICD-10-PCS; principal; 2018-05-11)
DX: O48.0 Post-term pregnancy (principal); O77.0 Labor and delivery complicated by meconium in amniotic fluid; O76 Abnormality in fetal heart rate and rhythm complicating labor and delivery; Z3A.40 40 weeks gestation of pregnancy; Z37.0 Single live birth
CPT/HCPCS: 59025; 80307; 81001; 84112; 85025; 86900; 86901; G0481; J2590; J3010; J7120